=== PATIENT | male | born 1990 | race Hispanic/Latino ===

== ENCOUNTER 2017-04-03 05:06 | Emergency (ER) | payer OTHER ==
[2017-04-03 06:06] LABS: Basophils % (Auto) 0.2 % (0.0-1.8); Eosinophils % (Auto) 0.2 % (0.0-4.3); Hematocrit 47.2 % (35.5-45.6); Hemoglobin 15.9 gm/dl (11.8-15.2); Mean Corpuscular HGB Conc 34 % (32-34); Mean Corpuscular Hemoglobin 31 pg (28-32); Mean Corpuscular Volume 91 fl (84-94); Platelet Count 231 K/mm3 (140-440)
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
[2017-04-03 06:22] LABS: Creatine Kinase MB 5.2 ng/mL (0.0-4.0)
[2017-04-03 06:25] LABS: Albumin 4.4 g/dL (3.9-5); Albumin/Globulin Ratio 1.2 %; Alkaline Phosphatase 135 units/L (35-129); BUN/Creatinine Ratio 10; Blood Urea Nitrogen 10 mg/dL (9-20); Calcium 9.8 mg/dL (8.4-10.2); Carbon Dioxide 26 mmol/L (22-30); Creatine Kinase 202 units/L (55-170); Glucose 111 mg/dL (75-100); Total Protein 8.1 g/dL (6.3-8.2)
[2017-04-03 06:26] LABS: Anion Gap 17 mmol/L; Chloride 96.2 mmol/L (98-107); Lipase 25 units/L (13-60); Potassium 4.7 mmol/L (3.6-5.0); Sodium 134 mmol/L (137-145)
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
[2017-04-03 06:46] LABS: Alanine Aminotransferase 866 units/L (7-56)
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
[2017-04-03] MEDS ORDERED: BOOSTRIX IM ONE (09:01)
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
[2017-04-03] MEDS ORDERED: TORADOL IM ONE (09:07)
[2017-04-03 09:18] LABS: Urine Drugs of Abuse Note Disclamer
[2017-04-03 09:48] LABS: Bilirubin,Urine NEG (Negative); Blood,Urine SM (Negative); Ketones,Urine NEG (Negative); Leukocyte Esterase,Urine NEG (Negative); Mucus,Urine FEW /HPF; Nitrite,Urine NEG (Negative); Protein,Urine <15 mg/dL mg/dL (Negative); RBC,Urine < 1.0 /HPF (0.0-6.0)
[2017-04-03 11:24] LABS: INR 0.9 (0.87-1.13)
[2017-04-03 11:25] LABS: Partial Thromboplastin Time 29.5 Sec. (24.2-36.6)
[2017-04-03 12:26] VITALS: BP 108/63
== END 2017-04-03 12:24 | disposition home or self-care (01) ==
LOC: ED 05:06
DX: S02.2XXA Fracture of nasal bones, initial encounter for closed fracture (principal); S62.394A Other fracture of fourth metacarpal bone, right hand, initial encounter for closed fracture; S01.21XA Laceration without foreign body of nose, initial encounter; S20.219A Contusion of unspecified front wall of thorax, initial encounter; F19.10 Other psychoactive substance abuse, uncomplicated; R94.5 Abnormal results of liver function studies; F12.10 Cannabis abuse, uncomplicated; F17.200 Nicotine dependence, unspecified, uncomplicated; V89.2XXA Person injured in unspecified motor-vehicle accident, traffic, initial encounter; Y93.9 Activity, unspecified; Y99.9 Unspecified external cause status; Y92.410 Unspecified street and highway as the place of occurrence of the external cause
CPT/HCPCS: 12011; 29125; 36415; 70450; 70486; 71260; 73130; 73562; 74177; 80053; 80307; 81001; 82140; 82550; 82553; 83690; 84484; 85025; 85610; 85730; 90471; 90715; 93005; 93010; 96372; 99285; G0480; J1885; Q9967; 80320

== ENCOUNTER 2020-06-24 21:50 | Emergency (ER) | payer SELFPAY ==
--- NOTE | 2020-06-24 22:01 | Emergency Department Report ---
History of Present Illness - General Stated Complaint: POSSIBLE OD Time Seen by Provider: 06/24/20 21:53 - History of Present Illness Initial Comments: 29-year-old male presents to ED following accidental heroin overdose. Patient was given Narcan by EMS. He is currently awake, alert and oriented x3. Patient has no complaints at this time. States he does not want to speak with anyone about rehab. Complaint: accidental overdose -: This evening Context: Accidental Overdose: wanted to get high Treatments Prior to Arrival: narcan - Related Data Previous Rx's Medication Instructions Recorded Last Taken Type Ibuprofen [Motrin] 600 mg PO Q8H PRN #30 tablet 04/03/17 Unknown Rx cephALEXin [Keflex] 500 mg PO Q6HR 7 Days capsule 04/03/17 Unknown Rx Allergies Allergy/AdvReac Type Severity Reaction Status Date / Time No Known Allergies Allergy Unverified 04/03/17 05:09 ED Review of Systems ROS: Stated complaint: POSSIBLE OD Other details as noted in HPI Comment: All other systems reviewed and negative Respiratory: denies: shortness of breath Cardiovascular: denies: chest pain Gastrointestinal: denies: abdominal pain, nausea, vomiting Neurological: denies: headache ED Past Medical Hx - Past Medical History Additional medical history: hep c - Social History Smoking Status: Current Every Day Smoker Substance Use Type: Alcohol, Marijuana - Medications Home Medications: Home Medications Medication Instructions Recorded Confirmed Last Taken Type Ibuprofen [Motrin] 600 mg PO Q8H PRN #30 tablet 04/03/17 Unknown Rx cephALEXin [Keflex] 500 mg PO Q6HR 7 Days capsule 04/03/17 Unknown Rx ED Physical Exam - General General appearance: alert, in no apparent distress - Head Head exam: Present: atraumatic, normocephalic - Eye Eye exam: Present: normal appearance, PERRL, EOMI - ENT ENT exam: Present: mucous membranes moist - Neck Neck exam: Present: normal inspection - Respiratory Respiratory exam: Present: normal lung sounds bilaterally. Absent: respiratory distress - GI/Abdominal GI/Abdominal exam: Absent: distended - Extremities Exam Extremities exam: Present: normal inspection - Neurological Exam Neurological exam: Present: alert, oriented X3, CN II-XII intact. Absent: motor sensory deficit - Psychiatric Psychiatric exam: Present: normal affect, normal mood - Skin Skin exam: Present: warm, dry, intact, normal color ED Medical Decision Making - Medical Decision Making Patient requesting to leave. Despite our efforts., Mr. Monroe has decided to leave AGAINST MEDICAL ADVICE. He has a normal mental status and full decisional capacity at this time. Patient understands his condition, consisting of accidental heroin overdose, and the risks of leaving AMA, including but not limited to permanent disability and , and has had an opportunity to ask questions about his medical condition. The patient has been informed that he may return for care anytime. Outpatient resources given for substance abuse programs. - Differential Diagnosis Accidental overdose Critical care attestation.: If time is entered above; I have spent that time in minutes in the direct care of this critically ill patient, excluding procedure time. ED Disposition Clinical Impression: Accidental heroin overdose Disposition: [id number]-07 LEFT AGAINST MED ADVICE Is pt being admited?: No Condition: Stable Instructions: Accidental Drug Poisoning, Adult, Finding Treatment for Addiction, Opioid Overdose Referrals: PRIMARY CARE, [Primary Care Provider] - 3-5 Days Forms: AMA Form Time of Disposition: 22:01
== END 2020-06-24 21:55 | disposition left against medical advice (07) ==
LOC: ED 21:50
DX: T40.1X1A Poisoning by heroin, accidental (unintentional), initial encounter (principal); F12.90 Cannabis use, unspecified, uncomplicated; F17.200 Nicotine dependence, unspecified, uncomplicated; Z79.899 Other long term (current) drug therapy; Y92.89 Other specified places as the place of occurrence of the external cause
CPT/HCPCS: 99282